=== PATIENT | female | born 1950 | race Caucasian/White ===

== ENCOUNTER 2021-02-20 12:59 | Outpatient (REF) | payer MEDICARE, SELFPAY | END 2021-02-20 13:00 | disposition home or self-care (01) | LOC: HO.HMGCLDS 12:59 | PROVIDERS: Visit Provider Internal Medicine | DX: Z20.822 Contact with and (suspected) exposure to COVID-19 (principal) | CPT/HCPCS: C9803; U0003; U0005 ==

== ENCOUNTER → 2021-11-19 10:56 | Outpatient (BNVA) | payer MEDICARE, SELFPAY | PROVIDERS: PCP Internal Medicine; Visit Provider Surgery | DX: N60.01 Solitary cyst of right breast (principal) | CPT/HCPCS: 99202 ==

== ENCOUNTER → 2021-12-01 11:00 | Outpatient (BNVA) | payer MEDICARE, SELFPAY | PROVIDERS: PCP Internal Medicine; Visit Provider Surgery | DX: N60.01 Solitary cyst of right breast (principal) | CPT/HCPCS: 99212 ==

== ENCOUNTER 2021-12-15 13:05 | Outpatient (REF) | payer MEDICARE, SELFPAY ==
--- NOTE | ~2021-12-15 | US_ITS ---
EXAMINATION: US DIAGNOSTIC ULTRASOUND BREAST, RIGHT CLINICAL INFORMATION: Nodule inferior right breast on outside mammography. Prior history cyst aspiration lower right breast. COMPARISON: Mammography 11/23/2021 ([facility]); 06/12/2012. TECHNIQUE: Ultrasound lower right breast is performed using grayscale imaging and color Doppler without and with harmonics. FINDINGS: There is solitary circumscribed simple cyst 5:00 position 2 cm from nipple measuring 1.1 x 0.8 x 1.1 cm. There is increased through-transmission of sound. No color flow. There is no solid mass, architectural abnormality, duct ectasia, or edema in the soft tissue planes. Results are discussed with the patient at time of visit. US/US breast RT limited IMPRESSION: Simple cyst 5:00 right breast 1.1 cm corresponding to finding on recent outside mammography. ASSESSMENT: BI-RADS 2: Benign RECOMMENDATION: Routine annual mammography screening. This patient's information was entered into a reminder system with a target due date for their next mammogram.
== END 2021-12-15 13:06 | disposition home or self-care (01) ==
LOC: HO.MAMMO 13:05
PROVIDERS: PCP Internal Medicine; Visit Provider Surgery
DX: N60.01 Solitary cyst of right breast (principal)
CPT/HCPCS: 76642